=== PATIENT | male | born 2000 | race African-American/Black ===

== ENCOUNTER 2021-01-18 13:40 | Inpatient (IN) | payer BC, MEDICAID ==
[~2021-01-18] VITALS: Ht 182.9 cm; Wt 88.9 kg
[2021-01-18] MEDS ORDERED: SODIUM CHLORIDE 0.9% 1000ML BAG (SEPSIS BOLUS) IV ONE (14:30)
[2021-01-18] MEDS ORDERED: PIPERACILLIN/TAZ 3.375G PREMIX 50 ML IV ONE (14:30)
[2021-01-18] MEDS ORDERED: VANCOMYCIN 1 G PREMIX 200 ML IV ONE (14:30)
[2021-01-18 15:59] LABS: CHLORIDE 104 mEq/L (98-107)
[2021-01-18 16:09] LABS: PROTHROMBIN TIME 10.9 sec (9.6-11.0)
[2021-01-18 16:26] LABS: CLARITY URINE CLEAR (CLEAR); COLOR URINE YELLOW (YELLOW); KETONES URINE 3+ (NEGATIVE); LEUKOCYTE ESTERASE URINE NEGATIVE (NEGATIVE); NITRITE URINE NEGATIVE (NEGATIVE); OCCULT BLOOD URINE NEGATIVE (NEGATIVE); PROTEIN URINE TRACE (NEGATIVE); SPECIFIC GRAVITY URINE 1.025 (1.005-1.030)
[2021-01-18 16:30] LABS: BASOPHILS % 0.3 % (0.0-2.0); EOSINOPHILS % 1.8 % (0.0-5.0); HEMATOCRIT. 38.1 % (42.0-52.0); HEMOGLOBIN. 12.9 g/dL (14.0-18.0); LYMPHOCYTES % 19.1 % (20.0-50.0); MEAN CORPUSCULAR HEMOGLOBIN 30.9 pg (28.0-32.0); MEAN CORPUSCULAR VOLUME 90.9 fL (80.0-94.0); MEAN PLATELET VOLUME 8.5 fl (7.4-10.4); MONOCYTES % 9.6 % (2.0-8.0); NEUTROPHILS % 69.2 % (40.0-76.0); PLATELET 313 x1000/uL (130-400); RED BLOOD CELL COUNT 4.19 mill/uL (4.7-6.1); RED CELL DISTRIBUTION WIDTH 14.2 % (11.6-14.6)
[2021-01-18] MEDS ORDERED: LORAZEPAM 0.5MG TABLET PO PRN (16:45)
[2021-01-18] MEDS ORDERED: KETOROLAC 15MG/ML VIAL IV PRN (16:45)
[2021-01-18] MEDS ORDERED: IPRATROPIUM/ALBUTEROL 0.5-3(2.5)MG/3ML NEB NEB PRN (16:45)
[2021-01-18] MEDS ORDERED: CLONIDINE 0.1MG TABLET PO PRN (16:45)
[2021-01-18] MEDS ORDERED: ACETAMINOPHEN 325MG TABLET PO PRN ×2 (16:45)
[2021-01-18] MEDS ORDERED: NITROGLYCERIN 0.4MG TABLET SL SL PRN (16:45)
[2021-01-18] MEDS ORDERED: ONDANSETRON HCL 4MG/2ML INJ IV PRN (16:45)
[2021-01-18] MEDS ORDERED: DOCUSATE SODIUM 100MG CAPSULE PO PRN (16:45)
[2021-01-18] MEDS ORDERED: GUAIFENESIN 200MG/10ML SUGAR FREE UDC PO PRN (16:45)
[2021-01-18] MEDS ORDERED: MAGNESIUM/ALUMINUM HYDROXIDE/SIMETHICONE 30ML UDC PO PRN (16:45)
[2021-01-18 17:06] LABS: *AMPHETAMINES SCREEN URINE NEGATIVE (NEGATIVE); *BARBITURATES SCREEN URINE NEGATIVE (NEGATIVE); *BENZODIAZEPINES SCREEN URINE NEGATIVE (NEGATIVE); *COCAINE SCREEN URINE NEGATIVE (NEGATIVE); METHADONE URINE SCREEN NEGATIVE (NEGATIVE); OPIATES URINE SCREEN NEGATIVE (NEGATIVE)
[2021-01-18 17:07] LABS: CANNABINOID URINE SCREEN PRESUMTIVE POSITIVE (NEGATIVE); PHENCYCLIDINE URINE SCREEN NEGATIVE (NEGATIVE)
[2021-01-18] MEDS: FAMOTIDINE 20MG TABLET PO SCH (20:12)
[2021-01-18] MEDS: ASCORBIC ACID 500 MG TABLET PO SCH (20:13)
[2021-01-18] MEDS: PIPERACILLIN/TAZ 3.375G PREMIX 50 ML IV SCH (20:13)
[2021-01-18] MEDS ORDERED: ZOLPIDEM TARTRATE 5MG TABLET PO PRN (21:00)
[2021-01-18 22:00] VITALS: BP 135/60
[2021-01-18] MEDS ORDERED: VANCOMYCIN 1 G PREMIX 200 ML IV SCH (22:00)
[2021-01-18 23:50] VITALS: BP 124/69
[2021-01-19 00:33] LABS: CREATINE KINASE 96 IU/L (39-308)
[2021-01-19 00:34] LABS: CREATINE KINASE MB FRACTION < 1.0 ng/mL (0.5-3.6)
[2021-01-19] MEDS ORDERED: VANCOMYCIN 1 G PREMIX 200 ML IV SCH (01:30)
[2021-01-19] MEDS: PIPERACILLIN/TAZ 3.375G PREMIX 50 ML IV SCH (03:14)
[2021-01-19 05:08] VITALS: BP 116/66
[2021-01-19 06:23] LABS: CHLORIDE 106 mEq/L (98-107)
[2021-01-19 06:36] LABS: CREATINE KINASE 91 IU/L (39-308)
[2021-01-19 06:41] LABS: CREATINE KINASE MB FRACTION < 1.0 ng/mL (0.5-3.6)
[2021-01-19 06:44] LABS: HEMOGLOBIN. 11.7 g/dL (14.0-18.0); MEAN CORPUSCULAR HEMOGLOBIN 30.1 pg (28.0-32.0); MEAN CORPUSCULAR VOLUME 90.4 fL (80.0-94.0); MEAN PLATELET VOLUME 8.8 fl (7.4-10.4); PLATELET 287 x1000/uL (130-400); RED BLOOD CELL COUNT 3.88 mill/uL (4.7-6.1)
[2021-01-19 08:00] VITALS: BP 118/57
[2021-01-19] MEDS: ASCORBIC ACID 500 MG TABLET PO SCH (08:36)
[2021-01-19] MEDS: FAMOTIDINE 20MG TABLET PO SCH (08:36)
[2021-01-19] MEDS ORDERED: ZINC SULFATE 220 MG ( 50 ) CAPSULE PO SCH (09:00)
[2021-01-19] MEDS ORDERED: CHOLECALCIFEROL (D3) 1000 UNIT TABLET PO SCH (09:00)
[2021-01-19 12:00] VITALS: BP 125/80
[2021-01-19] MEDS: VANCOMYCIN 1 G PREMIX 200 ML IV SCH ×2 (12:00→16:08)
[2021-01-19] MEDS: PIPERACILLIN/TAZOBACTAM 3.375 G in DEXT 5% WATER 100 ML IV SCH ×2 (12:06→16:08)
[2021-01-19] MEDS ORDERED: TETANUS, DIPHTHERIA, PERTUSSIS VAC/PF 0.5ML (>7YR OLD) IM ONE (14:45)
[2021-01-19 16:00] VITALS: BP 128/69
[2021-01-19 16:28] LABS: PLATELET ESTIMATE NORMAL
== END 2021-01-19 19:11 | disposition left against medical advice (07) | DRG 872 ==
LOC: ER 13:40 → ENRESERV 20:40 → 6EST 21:44
PROVIDERS: ADMIT Internal Medicine; ATTEND Internal Medicine
DX: A41.9 Sepsis, unspecified organism (principal); L03.114 Cellulitis of left upper limb; E44.1 Mild protein-calorie malnutrition; Z53.29 Procedure and treatment not carried out because of patient's decision for other reasons; Z23 Encounter for immunization; Z68.26 Body mass index [BMI] 26.0-26.9, adult
CPT/HCPCS: 36415; 71045; 73130; 73221; 80053; 80305; 81003; 82550; 82553; 83036; 83605; 83735; 84100; 84145; 84484; 85025; 85651; 86140; 90715; 93005; 93970; 99285; J1885; J2543; J3370; J7030; J7060